=== PATIENT | male | born 1955 | race Caucasian/White ===

== ENCOUNTER 2018-12-20 23:22 | Emergency (ER) | payer OTHER ==
[~2018-12-20] VITALS: Ht 170.2 cm; Wt 83.9 kg
[2018-12-21 00:01] LABS: HEMATOCRIT 46.5 % (42.0-52.0); HEMOGLOBIN 15.7 gm/dL (14.0-18.0); MCH 32.4 pg (26.0-34.0); MCHC 33.8 g/dL (28.0-37.0); MCV 95.7 fL (80.0-100.0); PLATELET COUNT 219 thou/uL (150-400); RBC 4.85 mil/uL (4.50-6.00); RDW 14.4 % (10.5-14.5); WBC 7.7 thou/uL (4.0-11.0)
[2018-12-21 00:10] LABS: APTT 22.4 Seconds (24.5-32.8); PROTIME 10.6 Seconds (9.3-11.4)
[2018-12-21 00:37] LABS: ANION GAP 10 mmol/L (7-16); BUN 19 mg/dL (7-18); CHLORIDE 102 mmol/L (98-107); CO2 26 mmol/L (21-32); CREATININE 1.7 mg/dL (0.7-1.3); GLUCOSE 126 mg/dL (74-106); POTASSIUM 4.1 mmol/L (3.5-5.1); SODIUM 138 mmol/L (136-145)
[2018-12-21 00:47] LABS: ALBUMIN 3.7 g/dL (3.4-5.0); DIRECT BILIRUBIN < 0.1 mg/dL (<0.1-0.3); SGOT 27 U/L (15-37); SGPT 42 U/L (30-65); TOTAL BILIRUBIN 0.3 mg/dL (<0.1-1.0); TOTAL PROTEIN 6.4 g/dL (6.4-8.2); TROPONIN-I <0.06 ng/mL (<0.06)
[2018-12-21 01:53] LABS: ABSOLUTE NEUTROPHILS 3.9 thou/uL (1.4-8.2)
[2018-12-21 01:54] LABS: ANISOCYTOSIS 1+; PLATELET ESTIMATE NORMAL; POIKILOCYTOSIS 1+
[2018-12-21] MEDS ORDERED: AZITHROMYCIN250 MG PO (04:14)
[2018-12-21 06:21] VITALS: BP 99/70
--- NOTE | 2018-12-21 15:12 | EKG ---
[place] [address] [facility] [place] [address] ELECTROCARDIOGRAM REPORT Name: MORENA KWON [facility] [id number] Admission: 12/20/18 Attend Phys: Discharge: 12/21/18 Date of : 57 Report #: [id number] THIS REPORT FOR: //name// [facility] ED Test Date: 2018-12-20 Test Time: 23:36:25 Pat Name: MORENA KWON Department: Room: Gender: M Cardiac Nurse Specialist: [place] : [id number] Requested By: Mala Dumont Order Number: [id number] MD: Raad Morris Measurements Intervals [place] Rate: 81 P: 53 VT: 162 QRS: 48 QRSD: 94 T: 79 QT: 349 QTc: 405 Interpretive Statements Sinus rhythm Low voltage, precordial leads Minimal ST elevation, inferior leads Compared to ECG 10/24/2009 22:00:26 ST (T wave) deviation now present Poor R-wave progression no longer present Electronically Signed On 12-21-2018 15:11:51 CDT by Raad Morris [email or web address] <ELECTRONICALLY SIGNED> By: Raad Morris MD 12/21/18 1511 [id number] Raad Morris MD /EPI
== END 2018-12-21 06:23 | disposition home or self-care (01) ==
LOC: ER 23:22
PROVIDERS: Emergency Medicine
DX: J06.9 Acute upper respiratory infection, unspecified (principal); R07.89 Other chest pain; I25.10 Atherosclerotic heart disease of native coronary artery without angina pectoris; I48.91 Unspecified atrial fibrillation; I25.2 Old myocardial infarction; Z95.2 Presence of prosthetic heart valve; Z98.890 Other specified postprocedural states; Z88.5 Allergy status to narcotic agent; Z88.2 Allergy status to sulfonamides